=== PATIENT | female | born 1960 | race Caucasian/White ===

== ENCOUNTER 2016-12-04 07:01 | Emergency (ER) | payer MEDICAID ==
[~2016-12-04] VITALS: Ht 177.8 cm; Wt 115.0 kg
[2016-12-04 07:02] VITALS: BP 157/78
[2016-12-04] MEDS ORDERED: LIDOCAINE 1%, 20ML ONE (07:29)
[2016-12-04] MEDS ORDERED: DIPH,PERTUSS(ACELL),TET VAC/PF 0.5 ML IM-VACC ONE ×2 (07:30→08:29)
[2016-12-04] MEDS ORDERED: LIDOCAINE 1%, 20ML SQ ONE (07:30)
[2016-12-04] MEDS ORDERED: BACITRACIN ZINC OINT 500U/GM, 0.9 GM ONE (08:55)
== END 2016-12-04 09:33 | disposition home or self-care (01) ==
LOC: ED 09:14
DX: S61.412A Laceration without foreign body of left hand, initial encounter (principal); W26.0XXA Contact with knife, initial encounter; Y93.89 Activity, other specified; Y92.098 Other place in other non-institutional residence as the place of occurrence of the external cause; Y99.8 Other external cause status
CPT/HCPCS: 12001; 90471; 90715

== ENCOUNTER 2017-01-02 20:18 | Emergency (ER) | payer MEDICAID ==
[~2017-01-02] VITALS: Ht 177.8 cm; Wt 108.1 kg
[2017-01-02 20:20] VITALS: BP 128/81
[2017-01-02] MEDS ORDERED: KETOROLAC 30 MG/1 ML ONE (21:17)
[2017-01-02] MEDS ORDERED: METHOCARBAMOL 750 MG TABLET ONE (21:17)
[2017-01-02] MEDS ORDERED: METHOCARBAMOL 750 MG TABLET PO ONE (21:30)
[2017-01-02] MEDS ORDERED: KETOROLAC 30 MG/1 ML IM ONE (21:30)
== END 2017-01-02 21:39 | disposition home or self-care (01) ==
LOC: ED 21:15
DX: M54.41 Lumbago with sciatica, right side (principal)
CPT/HCPCS: 71020; 96372; 99284; J1885

== ENCOUNTER 2017-03-20 17:16 | Emergency (ER) | payer MEDICAID ==
[~2017-03-20] VITALS: Ht 177.8 cm; Wt 105.0 kg
[2017-03-20 17:18] VITALS: BP 169/96
[2017-03-20] MEDS ORDERED: KETOROLAC 30 MG/1 ML ONE (17:47)
[2017-03-20] MEDS ORDERED: KETOROLAC 30 MG/1 ML IM ONE (18:00)
== END 2017-03-20 19:05 ==
LOC: ED 18:45
DX: S39.92XA Unspecified injury of lower back, initial encounter (principal); M51.36 Other intervertebral disc degeneration, lumbar region; M25.551 Pain in right hip; I10 Essential (primary) hypertension; G89.29 Other chronic pain; W10.9XXA Fall (on) (from) unspecified stairs and steps, initial encounter; Y93.89 Activity, other specified; Y92.89 Other specified places as the place of occurrence of the external cause; Y99.8 Other external cause status
CPT/HCPCS: 72110; 73502; 96372; 99284; J1885

== ENCOUNTER 2017-04-15 16:59 | Emergency (ER) | payer MEDICAID ==
[~2017-04-15] VITALS: Ht 154.9 cm; Wt 99.4 kg
[2017-04-15] MEDS ORDERED: SODIUM CHLORIDE 0.9% 1,000 ML IV ONE (17:13)
[2017-04-15] MEDS ORDERED: FAMOTIDINE 20 MG/2 ML IVP ONE (17:30)
[2017-04-15] MEDS ORDERED: SODIUM CHLORIDE 0.9% 1,000ML IVBOLUS ONE ×2 (17:30→18:30)
[2017-04-15] MEDS ORDERED: ONDANSETRON 2MG/ML, 2ML IVPush ONE (17:30)
[2017-04-15] MEDS ORDERED: MELO7.5T31 PO (17:31)
[2017-04-15] MEDS ORDERED: IBUP-1223 PO (17:31)
[2017-04-15] MEDS ORDERED: FLUO20CA8 PO (17:31)
[2017-04-15] MEDS ORDERED: CYCL5TAB PO (17:31)
[2017-04-15] MEDS ORDERED: RANI150T4 PO (17:31)
[2017-04-15] MEDS ORDERED: ONDANSETRON 2MG/ML, 2ML ONE (17:54)
[2017-04-15] MEDS ORDERED: FAMOTIDINE 20 MG/2 ML ONE (17:54)
[2017-04-15 18:04] LABS: HEMATOCRIT 46.3 % (34.6-47.8); HEMOGLOBIN 15.5 g/dL (11.7-16.4); WHITE BLOOD COUNT 19.4 x10^3/uL (3.4-10)
[2017-04-15 18:12] LABS: ASPARTATE AMINO TRANSFERASE 23 U/L (15-37); BLOOD UREA NITROGEN 27 mg/dL (7-18)
[2017-04-15 19:14] VITALS: BP 107/55
== END 2017-04-15 20:20 | disposition home or self-care (01) ==
LOC: ED 17:24
DX: A08.4 Viral intestinal infection, unspecified (principal); E86.0 Dehydration; D72.829 Elevated white blood cell count, unspecified; N28.9 Disorder of kidney and ureter, unspecified; I10 Essential (primary) hypertension; Z90.49 Acquired absence of other specified parts of digestive tract
CPT/HCPCS: 36415; 74022; 80053; 81003; 83605; 83690; 84145; 85025; 87040; 96361; 96374; 96375; 99285; J2405; J7030; S0028

== ENCOUNTER 2018-04-28 19:14 | Emergency (ER) | payer MEDICAID ==
[~2018-04-28] VITALS: Ht 177.8 cm; Wt 98.8 kg
[~2018-04-28 19:14] MED LIST: CYCL5TAB PO; FLUO20CA8 PO; IBUP-1223 PO; MELO7.5T31 PO; RANI150T4 PO
[2018-04-28 19:24] VITALS: BP 134/65
[2018-04-28] MEDS ORDERED: FLUORESCEIN/BENOXINATE 5 ML DROPS OP ONE (19:30)
[2018-04-28] MEDS ORDERED: PROPARACAINE OPHTH 0.5%, 15ML EACHEYE ONE (19:30)
== END 2018-04-28 20:19 | disposition home or self-care (01) ==
LOC: ED 20:10
DX: H00.011 Hordeolum externum right upper eyelid (principal); Z90.49 Acquired absence of other specified parts of digestive tract
CPT/HCPCS: 99283

== ENCOUNTER 2018-05-09 20:17 | Emergency (ER) | payer MEDICAID ==
[~2018-05-09] VITALS: Ht 177.8 cm; Wt 99.1 kg
[2018-05-09 20:19] VITALS: BP 105/75
[2018-05-09] MEDS ORDERED: ALBUTEROL/IPRATROPIUM 2.5MG/0.5MG, 3 ML NPPB ONE (20:30)
[2018-05-09] MEDS ORDERED: ALBUTEROL/IPRATROPIUM 2.5MG/0.5MG, 3 ML ONE (20:30)
== END 2018-05-09 21:24 | disposition home or self-care (01) ==
LOC: ED 20:40
DX: J44.1 Chronic obstructive pulmonary disease with (acute) exacerbation (principal); I10 Essential (primary) hypertension; F32.9 Major depressive disorder, single episode, unspecified; F20.9 Schizophrenia, unspecified; F17.200 Nicotine dependence, unspecified, uncomplicated
CPT/HCPCS: 71046; 93005; 94640; 99283; 99406; J7512; J7620

== ENCOUNTER 2018-05-11 08:25 | Emergency (ER) | payer MEDICAID ==
[~2018-05-11] VITALS: Ht 177.8 cm; Wt 99.4 kg
[2018-05-11] MEDS ORDERED: ALBU18HF INH (09:20)
[2018-05-11] MEDS ORDERED: PRED50TA PO (09:20)
[2018-05-11] MEDS ORDERED: ALBUTEROL/IPRATROPIUM 2.5MG/0.5MG, 3 ML ONE (09:48)
[2018-05-11] MEDS ORDERED: ALBUTEROL/IPRATROPIUM 2.5MG/0.5MG, 3 ML NPPB ONE (10:00)
[2018-05-11] MEDS ORDERED: ACETAMINOPHEN 325 MG TABLET ONE (10:12)
[2018-05-11] MEDS ORDERED: IBUPROFEN 600 MG TABLET ONE (10:12)
[2018-05-11] MEDS ORDERED: IBUPROFEN 200 MG TABLET PO ONE (10:30)
[2018-05-11] MEDS ORDERED: ACETAMINOPHEN 325 MG TABLET PO ONE (10:30)
[2018-05-11 10:32] LABS: BASOPHILS # (AUTO) 0.04 x10^3/uL (0-0.1); BASOPHILS % (AUTO) 0 % (0-1); EOSINOPHILS # (AUTO) 0.12 x10^3/uL (0-0.4); EOSINOPHILS % (AUTO) 1 % (1-7); LYMPHOCYTES # (AUTO) 2.25 x10^3/uL (1-3.4); LYMPHOCYTES % (AUTO) 13 % (22-44); MD NO; MEAN CORPUSCULAR HEMOGLOBIN 30.4 pg (27.0-34.8); MEAN CORPUSCULAR HGB CONC 33.6 g/dL (32.4-35.8); MEAN CORPUSCULAR VOLUME 90.4 fL (80-100); MEAN PLATELET VOLUME 7.6 fL (7.4-10.4); MONOCYTES # (AUTO) 0.37 x10^3/uL (0.2-0.8); MONOCYTES % (AUTO) 2 % (2-9); NEUTROPHILS # (AUTO) 14.12 x10^3/uL (1.8-6.8); NEUTROPHILS % (AUTO) 84 % (42-75); PLATELET COUNT 408 x10^3/uL (130-400); RED BLOOD COUNT 4.62 x10^6/uL (3.82-5.3); RED CELL DISTRIBUTION WIDTH 14.1 % (9.6-15.2)
[2018-05-11 10:43] LABS: ALBUMIN 3.4 g/dL (3.4-5.0); ANION GAP 7 mmol/L (5-15); CALCIUM 8.2 mg/dL (8.5-10.1); CHLORIDE 111 mmol/L (98-107)
[2018-05-11 10:44] LABS: CREATININE 1.02 mg/dL (0.55-1.02)
[2018-05-11 11:08] VITALS: BP 143/79
== END 2018-05-11 11:43 | disposition home or self-care (01) ==
LOC: ED 11:40
DX: J44.9 Chronic obstructive pulmonary disease, unspecified (principal); F32.9 Major depressive disorder, single episode, unspecified; F20.9 Schizophrenia, unspecified; I10 Essential (primary) hypertension
CPT/HCPCS: 36415; 71046; 80048; 82040; 85025; 94640; 99284

== ENCOUNTER 2020-06-13 04:48 | Emergency (ER) | payer MEDICAID ==
[~2020-06-13] VITALS: Ht 177.8 cm; Wt 88.0 kg
[~2020-06-13 04:48] MED LIST changes: +ALBU18HF INH; +FLUO20CA23 PO; -FLUO20CA8 PO; +PRED50TA PO
[2020-06-13 04:53] VITALS: BP 144/78
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
[2020-06-13] MEDS ORDERED: KETOROLAC 60 MG/2 ML IM ONE (05:30)
[2020-06-13] MEDS ORDERED: METHOCARBAMOL 750 MG TABLET PO ONE (05:30)
[2020-06-13] MEDS ORDERED: METHOCARBAMOL 750 MG TABLET ONE (05:42)
[2020-06-13] MEDS ORDERED: KETOROLAC 60 MG/2 ML ONE (05:42)
--- NOTE | 2020-06-13 05:54 | NUR ---
MEDICATED PER MAR PEANUT BUTTER AND JELLY SANDWICH GIVEN, TO CT
--- NOTE | 2020-06-13 06:28 | NUR ---
BACK FROM CT AT THIS TIME
--- NOTE | 2020-06-13 06:32 | NUR ---
PT STATES PAIN MUCH BETTER, COFFEE GIVEN
== END 2020-06-13 07:11 | disposition home or self-care (01) ==
LOC: ED 06:08
DX: M48.02 Spinal stenosis, cervical region (principal); M54.12 Radiculopathy, cervical region
CPT/HCPCS: 72125; 96372; 99284; J1885